=== PATIENT | male | born 1940 ===

== ENCOUNTER → 2016-08-11 | Outpatient (CLI) | payer MEDICARE, OTHER ==
--- NOTE | 2016-08-11 16:16 | Diagnostic Imaging Report ---
Indication: PAIN Technique: 3 views right hand Comparison: None Findings: Bones are diffusely osteoporotic. There are degenerative changes with erosions of the second distal interphalangeal joint. Mild degenerative changes of the fourth and fifth distal interphalangeal joints are also noted. No acute fractures. No dislocations. Impression: No acute bony trauma Osteoporotic change Degenerative changes, as described
== END | disposition home or self-care (01) ==
LOC: RAD 11:19
DX: M25.541 Pain in joints of right hand (principal); M81.8 Other osteoporosis without current pathological fracture

== ENCOUNTER 2017-03-28 13:41 | Outpatient (CLI) | payer MEDICARE, OTHER ==
--- NOTE | 2017-03-28 14:27 | Diagnostic Imaging Report ---
Indication: Sinus pressure Technique: Multiple views of the maxillofacial sinuses Comparison: None Findings: There is suggestion of chronic mucosal thickening of the bilateral maxillary sinuses. The frontal and ethmoid sinuses are clear. The sphenoid sinus is clear. There is evidence of extensive dental implant surgery. 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 The clinically indicated, consider CT for more sensitive and specific characterization
--- NOTE | 2017-03-28 14:28 | Diagnostic Imaging Report ---
Indication: COUGH Technique: 2 views of the chest Comparison: none. Findings: Lungs and pleural spaces are clear. Heart size is normal. Bones are unremarkable. The right hemidiaphragm is elevated. Impression: No acute process
== END 2017-03-28 15:41 | disposition home or self-care (01) ==
LOC: RAD 13:41
DX: R05 Cough (principal); J32.9 Chronic sinusitis, unspecified
CPT/HCPCS: 70220; 71020